=== PATIENT | female | born 1975 | race Caucasian/White ===

== ENCOUNTER 2017-05-13 10:27 | Emergency (ER) | payer BC ==
[~2017-05-13] VITALS: Ht 160 cm; Wt 100.0 kg
[~2017-05-13 10:27] MED LIST: TRANSDERM-SCOP1.5 MG TD; [UNRECOGNIZED DRUG - REMARK]; no meds
[2017-05-13 11:14] VITALS: BP 147/95
== END 2017-05-13 11:20 | disposition home or self-care (01) | DRG 605 ==
LOC: ED 10:27
PROC: 0HQFXZZ Repair Right Hand Skin, External Approach (ICD-10-PCS; principal; 2017-05-13)
DX: S61.210A Laceration without foreign body of right index finger without damage to nail, initial encounter (principal); W26.8XXA Contact with other sharp object(s), not elsewhere classified, initial encounter; Y93.89 Activity, other specified; Y92.009 Unspecified place in unspecified non-institutional (private) residence as the place of occurrence of the external cause